=== PATIENT | female | born 1955 | race Caucasian/White ===

== ENCOUNTER 2017-12-02 09:42 | Day surgery (SDC) | payer OTHER, SELFPAY ==
--- NOTE | 2017-12-02 09:49 | RAD_ITS ---
STUDY: X-RAY - ABDOMEN/PELVIS REASON FOR EXAM: Female, 62 years old. Bilateral kidney stones. Pre-ESWL examination. TECHNIQUE: Two AP supine views of the abdomen and pelvis. COMPARISON: None. FINDINGS: Normal visualized lung bases. There is an unremarkable bowel gas pattern. There is a 5.7 mm calculus in the midportion of the right kidney. Normal soft tissue structures. Normal visualized osseous structures. RAD/Abdomen Single View IMPRESSION: Right renal calculus. Electronically Signed: Eduardo Guidry MD at 14:13 EDT Tel [phone], Service support ,
[2017-12-02 10:35] VITALS: BP 145/88; PULSE 99; TEMP 37.2; O2SAT 98; BMI 29.4
[2017-12-02] MEDS: Cefazolin 2 GM in 0.9% Normal Saline 100 ML IV (11:42)
--- NOTE | 2017-12-02 12:01 | PCM.DC.URO ---
Discharge Diet: Light diet - advance as tolerated Discharge Activity: Return to Normal Activity Instructions: Shock Wave Lithotripsy Allergies/Adverse Reactions: Allergies Penicillins Allergy (Verified 11/29/17 10:41) Hives Sulfa (Sulfonamide Antibiotics) Allergy (Verified 11/29/17 10:41) Hives Medications to take at Discharge Adalimumab [Humira] 40 mg SQ QWEEK 11/29/17 Aspirin [Aspirin, Baby] 81 mg PO DAILY@0800 11/29/17 Cholecalciferol (Vitamin D3) [Vitamin D3] 1,000 unit PO DAILY 11/29/17 Folic Acid 2 mg PO DAILY@0811/29/17 Meloxicam 15 mg PO DAILY 11/29/17 Methotrexate 8 mg PO Q7D 11/29/17 leucovorin tablet 15 mg PO DAILY 11/29/17 Hydrocodone/Acetaminophen [[place] 5-325 Tablet] 1 ea PO Q4H PRN PRN 5 Days #20 tab 12/02/17 The following prescriptions were given: Hydrocodone/Acetaminophen [[place] 5-325 Tablet] 1 ea PO Q4H PRN PRN 5 Days #20 tab PRN Reason: Pain Orders to be completed after discharge: Abdomen Single View [RAD] Time Frame: 2 Weeks, Location: None Selected Primary Care Physician: Grace Webster [Primary Care Provider] - Please Follow Up With: Prakash Butler MD When: December 15 at 1:45 pm, get Xray before appt.
--- NOTE | 2017-12-02 12:35 | PCM.OPRPT ---
Report of Operation Date of Procedure: 12/02/17 Pre-Operative Diagnosis: Right kidney stone Post-Operative Diagnosis: Same Surgery/Procedure Performed:: Right extracorporeal shockwave lithotripsy Description of Surgical Findings:: 62-year-old female taken back to the operating room after smooth induction of general anesthesia. She was placed supine on the lithotripter table. We then used fluoroscopy to identify the stone in the mid right kidney. Once the stone was isolated into the F2 focal point of the lithotripter machine, we delivered 3000 shockwaves to the stone at a rate of 90 initially and then up to 120. We range the power from 5-7 during the treatment. At the end of the treatment cycle the stone broke up really well. Patient's anesthetic is being reversed we plan to see her back in a few weeks with an x-ray. No stent was placed Type of Anesthesia:: General Drains: none - Admit VTE Documentation VTE Present on Admission: No VTE Mechan Device Prophylaxis: SCD's VTE Pharm Prophylaxis ordered?: No Reason prophylaxis not ordered:: Treatment Not Indicated
[2017-12-02 12:45] VITALS: BP 131/79; BP 145/72; BP 145/88; PULSE 108; PULSE 113; RESP 16; TEMP 36.1; O2SAT 91; O2SAT 98
[2017-12-02 13:00] VITALS: BP 138/88; BP 145/88; PULSE 107; RESP 16; TEMP 36.1; O2SAT 97
[2017-12-02 13:15] VITALS: BP 145/88
== END 2017-12-02 13:25 | disposition home or self-care (01) ==
LOC: SDC 09:43 → AC 09:49
PROVIDERS: Family Provider Family Medicine; PCP Family Medicine; Visit Provider Urology
PROC: (CPT 50590; principal; 2017-12-02 11:20)
DX: N20.0 Calculus of kidney (principal); R35.0 Frequency of micturition; R35.1 Nocturia; R31.21 Asymptomatic microscopic hematuria; J45.20 Mild intermittent asthma, uncomplicated; M06.9 Rheumatoid arthritis, unspecified; K21.9 Gastro-esophageal reflux disease without esophagitis; Z79.82 Long term (current) use of aspirin; Z79.899 Other long term (current) drug therapy; Z87.891 Personal history of nicotine dependence
CPT/HCPCS: 50590; 74018; J7120

== ENCOUNTER → 2017-12-15 11:58 | Outpatient (CLI) | payer OTHER, SELFPAY ==
--- NOTE | 2017-12-15 12:00 | RAD_ITS ---
STUDY: X-RAY - ABDOMEN/PELVIS REASON FOR EXAM: Female, 62 years old. History of right renal calculus. TECHNIQUE: Single AP view of the abdomen / pelvis. COMPARISON: None. FINDINGS: There is an unremarkable bowel gas pattern. The previously seen calcification overlying the mid lower pole of the right kidney is not visualized at this time. Normal soft tissue structures. Normal visualized osseous structures. RAD/Abdomen Single View IMPRESSION: The previously seen calcification in the mid lower aspect of the right kidney is not seen at this time. Electronically Signed: Eduardo Guidry MD at 13:46 EDT Tel [phone], Service support ,
== END ==
PROVIDERS: Family Provider Family Medicine; PCP Family Medicine; Visit Provider Urology
DX: N20.0 Calculus of kidney (principal)
CPT/HCPCS: 74018

== ENCOUNTER → 2020-12-18 15:42 | Outpatient (CLI) | payer OTHER, SELFPAY ==
[2020-12-18 16:54] LABS: Color, Urine Yellow (Yellow); Glucose, Dipstick Normal (Normal); Ketone-Dipstick Negative (Negative); Leukocyte Esterase-Dipstick 500 /ul (Negative); Nitrite-Dipstick Negative (Negative); Occult Blood-Urine 25 /ul (Negative); Protein-Dipstick Negative (Negative); Specific Gravity, Urine 1.015 (1.002-1.030); Urine Bilirubin Dipstick Negative (Negative); Urine Clarity Sl. Cloudy (Clear); Urine Urobilinogen Normal (Normal)
[2020-12-18 17:08] LABS: Mucous, Urine 1+ /hpf (<or=2+); Squamous Epithelial Cells - UA 5-10 SEEN /hpf (5-10); White Blood Cells 5-10 SEEN /hpf (0-5)
[2020-12-18 17:09] LABS: Bacteria 1+ /hpf (None Seen); Red Blood Cells-Urine 0-5 SEEN /hpf (0-5)
== END ==
LOC: LAB.FUTURE 15:44 → LABSPEC 12-19 05:43
PROVIDERS: PCP Family Medicine; Visit Provider Nurse Practitioner Adult Health
DX: R31.29 Other microscopic hematuria (principal)
CPT/HCPCS: 81001

== ENCOUNTER → 2020-12-25 06:30 | Outpatient (CLI) | payer OTHER, SELFPAY ==
--- NOTE | 2020-12-25 06:37 | CT_ITS ---
STUDY: CT ABDOMEN AND PELVIS WITHOUT CONTRAST REASON FOR EXAM: Female, 65 years old. KIDNEY STONE. Back pain. RADIATION DOSAGE (If Supplied By Facility): CTDIvol = ( 12.75 ) mGy, DLP = ( 649.60 ) mGycm TECHNIQUE: Transaxial images were obtained from the dome of the diaphragm to the symphysis pubis without oral contrast, and without intravenous contrast. Sagittal and coronal images were reconstructed. Individualized dose optimization techniques were used for this CT. COMPARISON: None. FINDINGS: The visualized lung bases are unremarkable. The visualized portions of the heart are within normal limits. There is a 2 cm x 1.8 cm cyst in the left lobe of the liver. Normal gallbladder and extrahepatic biliary system. Normal spleen. Normal pancreas. There is a small, circumscribed, smooth, low attenuation left adrenal mass, consistent with an adrenal adenoma. This measures 1.3 cm. Normal right adrenal gland. There are multiple tiny nonobstructive right intrarenal calculi. Mild degree of right hydronephrosis. 5 mm calculus in the upper pole calyx of the left kidney. There is a small hiatal hernia. Normal small intestine. There are scattered colonic diverticula consistent with diverticulosis. The appendix is visualized and appears normal. There is scattered atherosclerotic calcification of the abdominal aorta, without a demonstrated aneurysm. Normal inferior vena cava. Normal retroperitoneum. Normal urinary bladder. Normal abdominal wall. Facet joint osteoarthritis. CT/Abdomen/Pelvis without Cont IMPRESSION: Nonobstructing bilateral intrarenal calculi more prominent in the right kidney. Mild degree of right hydronephrosis. 2 cm x 1.8 cm cyst in the left lobe of the liver. Electronically Signed: Eduardo Guidry MD at 8:10 EDT , Service support ,
== END ==
PROVIDERS: PCP Family Medicine; Referring Provider Nurse Practitioner Adult Health; Visit Provider Nurse Practitioner Adult Health
DX: N20.0 Calculus of kidney (principal); R31.29 Other microscopic hematuria
CPT/HCPCS: 74176

== ENCOUNTER → 2022-09-30 | Outpatient (CLI) | payer MEDICARE, SELFPAY ==
--- NOTE | 2022-09-30 08:54 | RAD_ITS ---
STUDY: X-RAY - ABDOMEN/PELVIS REASON FOR EXAM: Female, 67 years old. Renal calculus. TECHNIQUE: Single AP view of the abdomen / pelvis on 2 images. COMPARISON: November 2017. FINDINGS: Normal visualized lung bases. Normal bowel gas pattern with no disproportionate dilatation. There is no demonstrated free abdominal air. 4 mm in diameter calcification projected over the upper pole left kidney. Normal soft tissue structures. Normal visualized osseous structures. RAD/Abdomen Single View IMPRESSION: Left nephrocalcinosis as described. No acute finding. Electronically Signed: Vance Cash, at 9:27 EST ,
== END | disposition home or self-care (01) ==
PROVIDERS: PCP Family Medicine; Visit Provider Urology
DX: N20.0 Calculus of kidney (principal)
CPT/HCPCS: 74018